=== PATIENT | female | born 1995 | race Caucasian/White ===

== ENCOUNTER → 2017-08-11 | Day surgery (SDC) | payer OTHER ==
[~2017-08-11] VITALS: Ht 165.1 cm; Wt 109.0 kg
[~2017-08-11] MED LIST: DICL50TA3 PO; ERGO500037 PO; METH500T37 PO; PROP10TA7 PO
[2017-08-11 12:40] VITALS: BP 151/83; PULSE 115; TEMP 36.9; O2SAT 99; Ht 165.1 cm; Wt 109.0 kg
--- NOTE | 2017-08-11 13:57 | [facility] Operative Report ---
Operative Report Operative Date Aug 11, 2017. Pre-Operative Diagnosis Syncope Post-Operative Diagnosis same Procedure(s) Performed Tilt test Surgeon Dr. Pinon Turntable Man Surgeon(s) none Estimated Blood Loss none Findings Normal response to upright tilt Specimens None Anesthesia none Complication(s) None Disposition Description of Procedure After obtaining informed consent for the procedure, the patient was brought to the laboratory having nothing by mouth after midnight. The patient was identified in the laboratory, placed supine on the tilt table and remained supine for 15 minutes. The head of the tilt table was then raised to a 70 head up position where it remained for 30 minutes. The head of the bed was then placed supine and monitoring continued for an additional 15 minutes. During the procedure continuous pulse oximetry and electrocardiography was performed, noninvasive blood pressure monitoring was performed at five-minute intervals. Findings: The heart rate and blood pressure did not fall during the study. Pulse oximetry was unchanged throughout the study. There was no significant change in blood pressure or heart rate when the patient was placed supine. Details of the blood pressure, heart rate and pulse oximetry data are presented on the procedure data sheet. Conclusions: Normal tilt test with no evidence of orthostasis or vasovagal physiology. Baseline hypertension and hypertension throughout the study, baseline tachycardia and tachycardic throughout the study with no significant change during the procedure. I attest to the content of the Intraoperative Record and any orders documented therein. Any exceptions are noted below.
== END | disposition home or self-care (01) ==
LOC: C.CATH 12:24
PROVIDERS: ATTEND Internal Medicine Clinical Cardiac Electrophysiology
DX: R55 Syncope and collapse (principal)

== ENCOUNTER → 2017-11-27 | Outpatient (CLI) | payer BC ==
[2017-11-27 14:40] LABS: HEMATOCRIT 34.1 % (37-47); HEMOGLOBIN 10.9 g/dL (12.0-16.0); MEAN CELL VOLUME 83.2 fL (80-100); MEAN CORPUSCULAR HEMOGLOBIN 26.6 pg (25-34); PLATELET COUNT 311 K/uL (130-400); RED CELL DISTRIBUTION WIDTH CV 13.5 % (11.5-14.5); WHITE BLOOD COUNT 7.11 K/uL (4.8-10.8)
[2017-11-27 15:03] LABS: BLOOD UREA NITROGEN 12 mg/dl (7-18); CALCIUM 9.1 mg/dl (8.5-10.1); CARBON DIOXIDE 26 mmol/L (21-32); CREATININE 0.65 mg/dl (0.60-1.20); GLUCOSE 93 mg/dl (70-99); SODIUM 137 mmol/L (136-145)
== END | disposition home or self-care (01) ==
LOC: C.LAB1850 13:54
PROVIDERS: ATTEND Internal Medicine Cardiovascular Disease
DX: R42 Dizziness and giddiness (principal); R00.2 Palpitations; R00.0 Tachycardia, unspecified; R55 Syncope and collapse